=== PATIENT | female | born 1975 | race African-American/Black ===

== ENCOUNTER 2024-02-11 04:04 | Day surgery (SDC) | payer OTHER ==
[2024-02-09 18:10] VITALS: BMI 42.0
[2024-02-11 06:54] VITALS: RESP 20
[2024-02-11] MEDS ORDERED: PROPOFOL 20 ML ONE (07:20)
[2024-02-11] MEDS ORDERED: LIDOCAINE HCL/PF 2% SDV 5ML VIAL ONE (07:20)
[2024-02-11] MEDS ORDERED: MIDAZOLAM HCL 2 MG/2 ML SINGLE DOSE VIAL ONE (07:21)
[2024-02-11] MEDS ORDERED: BUPIVACAINE HCL/PF 0.5% (5MG/ML) 10 ML VIAL ONE ×2 (07:40→10:56)
[2024-02-11] MEDS ORDERED: LIDOCAINE HCL 1%, 10 MG/ML (20ML VIAL) ONE ×2 (07:40→10:55)
[2024-02-11] MEDS ORDERED: DEXAMETHASONE SOD PHOSPHATE 4 MG/1 ML VIAL ONE (08:19)
[2024-02-11] MEDS ORDERED: ceFAZolin SODIUM 1 GM VIAL ONE (08:19)
[2024-02-11] MEDS ORDERED: ONDANSETRON 4 MG/2 ML VIAL ONE (08:19)
[2024-02-11] MEDS ORDERED: KETOROLAC TROMETHAMINE 30 MG/1 ML VIAL ONE (08:19)
[2024-02-11] MEDS: ceFAZolin SODIUM 1 GM VIAL IVPB ONE (08:20)
[2024-02-11] MEDS: BUPIVACAINE HCL/PF 0.5% (5 MG/ML) 30 ML VIAL IJ ONE (08:28)
[2024-02-11] MEDS: LIDOCAINE HCL 1%, 10 MG/ML (20ML VIAL) INF ONE (08:28)
[2024-02-11] MEDS ORDERED: BACITRACIN ZINC 15 GM TUBE TOPICAL OINTMENT ONE (08:56)
[2024-02-11] MEDS: ACETAMINOPHEN 500 MG TABLET (FP) PO ONE (12:37)
[2024-02-11] MEDS ORDERED: ACETAMINOPHEN 500 MG TABLET (FP) ONE (12:38)
[2024-02-11 14:22] VITALS: TEMP 97.2
[2024-02-11 14:29] VITALS: BP 128/80; PULSE 73
== END 2024-02-11 13:59 | disposition home or self-care (01) ==
LOC: JASU-SURG 04:04
PROVIDERS: ATTEND Surgery
PROC: 0JB90ZZ Excision of Buttock Subcutaneous Tissue and Fascia, Open Approach (ICD-10-PCS; principal; 2024-02-11 08:00)
DX: D17.1 Benign lipomatous neoplasm of skin and subcutaneous tissue of trunk (principal); L91.8 Other hypertrophic disorders of the skin
CPT/HCPCS: 81025; 88304-TC